=== PATIENT | male | born 1955 | race Caucasian/White ===

== ENCOUNTER 2021-08-13 06:27 | Day surgery (SDC) | payer BC ==
[2021-08-12 12:38] VITALS: BMI 23.7
[~2021-08-13 06:27] MED LIST: EPINEPHrine 0.3 MG in Ophthalmic Irrigation Solution 500 ML IRR SCH
[2021-08-13] MEDS ORDERED: Midazolam HCl 2 mg/2 ml Vial ONE (06:28)
[2021-08-13] MEDS ORDERED: Fentanyl 100 MCG/2 ML VIAL ONE (06:28)
[2021-08-13] MEDS ORDERED: Phenylephrine 2.5% Ophth Soln 5 ML BOT ONE (06:42)
[2021-08-13] MEDS ORDERED: Cyclopentolate 1% Opth Drop 2 ML BOT ONE (06:42)
[2021-08-13] MEDS ORDERED: Bupivacaine PF 0.75% SDV 10 ML ONE (08:12)
[2021-08-13] MEDS ORDERED: CEFAZOLIN 1 GM VIAL ONE (08:12)
[2021-08-13] MEDS ORDERED: PROPOFOL 200 MG/20 ML VIAL ONE (08:12)
[2021-08-13] MEDS ORDERED: Maxitrol 0.1% Opth Oint 3.5 GM TUBE ONE (08:12)
[2021-08-13] MEDS ORDERED: Triamcinolone 40 MG/ML VIAL ONE (08:12)
[2021-08-13] MEDS ORDERED: Indocyanine Green 25 MG/10 ML VIAL ONE (08:12)
[2021-08-13] MEDS ORDERED: Lidocaine 1% PF 5 ML VIAL ONE (08:12)
[2021-08-13] MEDS ORDERED: Lidocaine 4% PF 5 ML AMP ONE (08:12)
== END 2021-08-13 09:52 | disposition home or self-care (01) ==
LOC: SDC 06:27
PROVIDERS: ATTEND Ophthalmology Retina Specialist
PROC: 08T53ZZ Resection of Left Vitreous, Percutaneous Approach (ICD-10-PCS; principal; 2021-08-13)
PROC: 08NF3ZZ Release Left Retina, Percutaneous Approach (ICD-10-PCS; principal; 2021-08-13)
DX: H35.372 Puckering of macula, left eye (principal); Z79.899 Other long term (current) drug therapy; Z98.890 Other specified postprocedural states
CPT/HCPCS: J0171; J2250; J3010